=== PATIENT | female | born 1990 | race Two or more races ===

== ENCOUNTER 2022-07-08 04:38 | Inpatient (IN) | payer OTHER ==
[~2022-07-08] VITALS: Ht 161.3 cm; Wt 2.7 kg
[2022-07-08] MEDS ORDERED: PRENATAL TABLE1 EAC1 PO (05:07)
[2022-07-08] MEDS ORDERED: SYNTHROID150 MCG PO (05:13)
== END 2022-07-10 15:59 | disposition home or self-care (01) | DRG 787 ==
LOC: OB/GYN 04:38 → LDR 04:38 → OB/GYN 11:02
PROVIDERS: ADMIT Specialist; ATTEND Specialist
PROC: 4A1HXCZ Monitoring of Products of Conception, Cardiac Rate, External Approach (ICD-10-PCS; 2022-07-08)
PROC: 10D00Z1 Extraction of Products of Conception, Low, Open Approach (ICD-10-PCS; principal; 2022-07-08 08:00)
DX: O69.1XX0 Labor and delivery complicated by cord around neck, with compression, not applicable or unspecified (principal); O24.013 Pre-existing type 1 diabetes mellitus, in pregnancy, third trimester; O99.283 Endocrine, nutritional and metabolic diseases complicating pregnancy, third trimester; E03.9 Hypothyroidism, unspecified; E10.9 Type 1 diabetes mellitus without complications; Z3A.38 38 weeks gestation of pregnancy; Z79.4 Long term (current) use of insulin; Z37.0 Single live birth; Z20.822 Contact with and (suspected) exposure to COVID-19